=== PATIENT | female | born 1995 | race African-American/Black ===

== ENCOUNTER 2017-02-11 00:09 | Inpatient (IN) | payer BC, MEDICAID ==
[2017-02-11] VITALS (12 sets, daily range): BP systolic 113–133; BP diastolic 43–84
[~2017-02-11] VITALS: Ht 167.6 cm; Wt 90.7 kg
[~2017-02-11 00:09] MED LIST: ADULT ASPIRIN E81 MG PO; CONCEPT DHA PO; FERROUS SULF325 M1 PO; IBUPROFEN600 MG PO; MOTRIN800 MG PO; NAPROSYN500 MG PO; NAPROXEN500 MG PO; NO; NO MEDS; PRE-NATAL PO; PRILOSEC20 MG/CAP PO; PROCARDIA XL30 MG PO; PROMETRIUM200 MG VA
--- NOTE | 2017-02-11 00:10 | NUR ---
ARRIVAL TO OB UNIT, UNACCOMPANIED. ORIENTED TO ROOM AND CALL SYSTEM. INSTRUCTED IN HIBICLENS SHOWER.
[2017-02-11 01:16] LABS: URINE BILIRUBIN - DIPSTICK NEGATIVE (NEGATIVE); URINE BLOOD DIPSTICK NEGATIVE (NEGATIVE); URINE CLARITY CLEAR; URINE COLOR YELLOW; URINE GLUCOSE - DIPSTICK NEGATIVE (NEGATIVE); URINE KETONE NEGATIVE (NEGATIVE); URINE LEUK ESTERASE NEGATIVE (NEGATIVE); URINE NITRITE - DIPSTICK NEGATIVE (Negative); URINE PROTEIN - DIPSTICK NEGATIVE (NEG-TRACE); URINE SPECIFIC GRAVITY <=1.005; URINE UROBILINOGEN - DIPSTICK 0.2 E.U./dL (0.2)
[2017-02-11 01:17] LABS: BARBITURATES NEGATIVE (NEGATIVE); COCAINE NEGATIVE (NEGATIVE); METHADONE NEGATIVE (NEGATIVE); OXCYCODONE NEGATIVE (NEGATIVE); TETRAHYDROCANNABIONOL NEGATIVE (NEGATIVE); TRICYLIC ANTIDEPRESSANTS NEGATIVE (NEGATIVE)
[2017-02-11 01:21] LABS: ALBUMIN 3.3 g/dL (3.2-5.0); ALKALINE PHOSPHATASE 112 u/l (38-126); ANION GAP 16 (6-22 (CALC)); BILIRUBIN, TOTAL 0.3 mg/dL (0.0-1.4); BUN 5 mg/dL (7-17); BUN/CREATININE RATIO 11 (12-20 (CALC)); CALCIUM 9.3 mg/dL (8.4-10.2); CARBON DIOXIDE 22 mmol/l (22-30); CHLORIDE 105 mmol/l (95-108); CREATININE 0.5 mg/dL (0.5-1.0); GFR > 60 ML/MIN (>=60 (CALC)); GFR FOR AFR.AMER. > 60 ML/MIN (>=60 (CALC)); GLUCOSE 92 mg/dL (65-105); POTASSIUM 4.3 mmol/l (3.5-5.1); SGOT/AST 16 u/l (14-36); SGPT/ALT 23 u/l (9-52); SODIUM 139 mmol/l (137-146); TOTAL PROTEIN 6.6 g/dL (6.3-8.2)
[2017-02-11 01:28] LABS: HEMATOCRIT 32.8 % (37.0-47.0); HEMOGLOBIN 11.3 g/dl (12.0-16.0); IMMATURE GRANULOCYTES 0.3 % (0.0-1.0); MEAN CELL VOLUME 87.2 fL CALC (80.0-100.0); MEAN CORPUSCULAR HGB 30.1 pG CALC (26.0-32.0); MEAN CORPUSCULAR HGB CONC 34.5 g/L CALC (32.0-36.0); NEUT# 3.62 thou/uL (2.00-7.15); RED BLOOD COUNT 3.76 mill/uL (4.20-5.60); RED CELL DISTRI WIDTH 14.5 % (11.5-15.5)
--- NOTE | 2017-02-11 01:28 | NUR ---
SETTLED AND READY FOR SLEEP. SIDE RAILS UP X 2, CALL GEE WITHIN REACH.
--- NOTE | 2017-02-11 06:15 | NUR ---
UP TO BATHROOM TO VOID. EFM APPLIED ON RETURN. FHR 140 WITH MODERATE VARIABILITY, ACCELERATONS AND NO DECELERATIONS, CATEGORY 1.
--- NOTE | 2017-02-11 07:00 | NUR ---
REPORT RECEIVED FROM Nani WARD RN. PT IS SLEEPING WHEN RN AT BEDSIDE BUT REPORTED TO BE UPSET AND ANXIOUS.
--- NOTE | 2017-02-11 07:48 | NUR ---
ANESTHESIA, [employer] HERE, aLz MENA SPEAKING WITH PT AND EXPLAINING THAT GENERAL ANESTHESIA WILL BE GIVEN SECONDARY TO RECENT ASA USE AND POTENTIAL FOR COMPLICATION WITH SPINAL. PT EXPRESSING THAT SHE WOULD LIKE TO BE AWAKE. DR. MERRILL IN AND PT STATING THAT SHE IS SCARED AND WANTS SPINAL. DR. MERRILL DISCUSSED OPTION TO WAIT UNTIL LATER IN THE WEEK AND PLAN SPINAL AFTER SEVERAL DAYS OFF ASA. PT STATED THAT SHE WANTS C/S TODAY AND WANTS GENERAL ANESTHESIA. PT STATING THAT SHE IS ANXIOUS AND HAS PANIC ATTACKS, AND RN'S Al DAWN AND MYSELF OFFERING SUPPORT. PT EXPRESSING THAT IT HELPS HER TO TOUCH US, REASSURED HER THAT THIS IS FINE. EXPLAINED INFANT CARE. PTS GRANDMOTHER AT BEDSIDE THRU OUT THE CONVERSATIONS WITH ANESTHESIA AND DR. MERRILL. PT CALMER AT PRESENT. PT HAD 50 CC EMESIS, BILE APPEARING
--- NOTE | 2017-02-11 07:54 | NUR ---
[employer] ELECTRICIAN HELPER IN TO SPEAK TO PT. PT EXPRESSING UNDERSTANDING OF PROCEDURE AND STATES THAT SHE HAS NO QUESTIONS.
--- NOTE | 2017-02-11 09:40 | NUR ---
Cytotec po given in recovery room. Pt encouraged to take small sips of water.
--- NOTE | 2017-02-11 10:10 | NUR ---
Received care of pt. To room 203 via stretcher by OR Nani Curry RN. Pt transferred to bed with complaint of pain. SCD's applied. Instructed to cough and deep breathe while in bed. Encouraged to drink small sips of water. Water with no ice given. Fundus firm with massage at 1 below umbilicus. Scant lochia. Pt encouraged to notify nurse of any sensation of trickling or gushing of blood in perineum. Assessment completed as charted. Vital signs obtained per order. Plan of care reviewed. Call light within reach. Will continue to monitor.
--- NOTE | 2017-02-11 16:50 | NUR ---
PT ASSISTED OUT OF BED TO RESTROOM. PT DOING WELL, MINIMAL HELP NEEDED. EFREN CARE INSTRUCTIONS GIVEN. EFREN CARE DONE BY PT. ROBERSON REMOVED AT THIS TIME. CLEAN EFREN PADS APPLIED. PT ASSISTED TO SIT UP IN CHAIR AT BEDSIDE. CALL LIGHT WITHIN REACH. INSTRUCTED NOT TO CROSS LEGS. PT ENCOURAGED TO STAY IN CHAIR FOR 20-30 MINUTES AND THEN GET BACK IN BED. DINNER TRAY GIVEN AT THIS TIME. PT STATES FAMILY WILL BE ARRIVING LATER TODAY.
--- NOTE | 2017-02-11 18:00 | NUR ---
PT ASSISTED TO RESTROOM. VOIDED 400 ML YELLOW URINE, SMALL BLOOD CLOT NOTED. WILL CONTINUE TO MONITOR. ASSISTED TO BED AT THIS TIME. IN ARMS TO BREASTFEED. PT WITH NO COMPLAINTS OR CONCERNS.
--- NOTE | 2017-02-11 18:50 | NUR ---
PT . NO REQUESTS AT THIS TIME. REPORT GIVEN TO ONCOMING SHIFT.
--- NOTE | 2017-02-11 20:00 | NUR ---
PT AWAKE AND ALERT, RESTING IN BED, FAMILY IN RM VISITING, PT DENIES ANY CONCERNS AT THIS TIME, VSS, MEDICATED SCHEDULED, ASSESSMENT DONE- ALL WNL, PT DENIES ANY FURTHER NEEDS AT THIS TIME, ENCOURAGED TO CALL NURSE FOR ANY NEEDS OR CONCERNS- VERBALIZES UNDERSTANDING.
--- NOTE | 2017-02-12 | NUR ---
PT AWAKE AND ALERT, UP AMBULATING IN RM, C/O PAIN- MEDICATED ORDERED, VSS, PT DENIES ANY OTHER NEEDS, WILL CONT TO MONITOR, PT'S MOTHER AT BEDSIDE AND ROOMING IN.
[2017-02-12 04:00] VITALS: BP 117/48
[2017-02-12 06:54] LABS: HEMATOCRIT 22.5 % (37.0-47.0); HEMOGLOBIN 7.7 g/dl (12.0-16.0); IMMATURE GRANULOCYTES 0.3 % (0.0-1.0); MEAN CELL VOLUME 87.9 fL CALC (80.0-100.0); MEAN CORPUSCULAR HGB 30.1 pG CALC (26.0-32.0); MEAN CORPUSCULAR HGB CONC 34.2 g/L CALC (32.0-36.0); NEUT# 7.39 thou/uL (2.00-7.15); RED BLOOD COUNT 2.56 mill/uL (4.20-5.60); RED CELL DISTRI WIDTH 14.1 % (11.5-15.5)
--- NOTE | 2017-02-12 07:00 | NUR ---
Received care of pt. Sitting up in bed with infant in arms, positive bonding noted. Plan of care reviewed. pt with no questions or concerns. States she has been using incentive spirometer. previously medicated for pain. denies pain medication at this time. Dressing clean and dry. Instructed to get in shower today and let dressing soak before removing. Incision care reviewed. Will continue to monitor.
[2017-02-12 07:10] VITALS: BP 114/56
--- NOTE | 2017-02-12 07:10 | NUR ---
Pt up to restroom with no complaints. mother in room at this time assisting with infant. Will continue to monitor.
--- NOTE | 2017-02-12 07:40 | NUR ---
Pt verbalizes light to moderate lochia, no clots. No gushing of fluids. Skin WNL, no bruising, no petechiae. Mucous membranes pink. Denies fainting, dizziness, and weakness. Call light within reach. Will continue to monitor.
--- NOTE | 2017-02-12 10:50 | NUR ---
Discharge planning reviewed. Pt with no questions. Will continue to monitor.
--- NOTE | 2017-02-12 11:08 | NUR ---
Pt denies s/s of depression at this time. Instructed to seek help and notify MD if any symptoms arise after discharge. Pt verbalizes understanding.
--- NOTE | 2017-02-12 13:14 | NUR ---
Dr Reyes in to see pt. No new orders received. Will continue to monitor.
[2017-02-12 16:46] VITALS: BP 110/51
--- NOTE | 2017-02-12 18:42 | NUR ---
Pt resting in bed with no complaints. report ready for oncoming shift.
--- NOTE | 2017-02-12 19:30 | NUR ---
PT AWAKE AND ALERT, SITTING UP IN CHAIR, DENIES ANY CONCERNS AT THIS TIME, ASSESSMENT DONE- SEE FLOWSHEET, PT ENOURAGED TO CALL NURSE FOR ANY NEEDS OR CONCERNS- VERBALIZES UNDERSTANDING.
[2017-02-12 20:00] VITALS: BP 140/60
--- NOTE | 2017-02-13 00:18 | NUR ---
PT RESTING QUIETLY IN BED, DENIES ANY CONCERNS AT THIS TIME, WILL CONT TO MONITOR.
[2017-02-13 04:05] VITALS: BP 120/55
--- NOTE | 2017-02-13 06:05 | NUR ---
PT RESTING QUIETLY IN BED- AROUSES EASILY, DENIES ANY PAIN OR CONCERNS AT THIS TIME, PT REENCOURAGED TO CALL NURSE FOR ANY NEEDS OR CONCERNS.
--- NOTE | 2017-02-13 07:10 | NUR ---
REPORT RECEIVED, PT RESTS WITH EYES CLOSED.
--- NOTE | 2017-02-13 07:35 | NUR ---
PT SITS IN BED, HOLDING INFANT, SERVED BREAKFAST, PT DENIES PAIN.
[2017-02-13] MEDS ORDERED: IBUPROFEN600 MG PO (09:32)
[2017-02-13] MEDS ORDERED: IRON325 M1 PO (09:33)
[2017-02-13] MEDS ORDERED: LORTAB 7.57.5 MG PO (09:34)
[2017-02-13] MEDS ORDERED: ACETAMINOP160 MG/5 M PO (09:38)
--- NOTE | 2017-02-13 10:45 | NUR ---
REVIEWED DISCHARGE PLAN, PT ACKNOWLEDGED UNDERSTANDING.
--- NOTE | 2017-02-13 12:35 | NUR ---
PT OOB IN ROOM CARING FOR . PT STATES SHE HAS BEEN URINATING W/O PROBLEM.
--- NOTE | 2017-02-13 13:20 | NUR ---
PT MEDICATED PER REQUEST, ACHING. SITS IN CHAIR. COMFORT MEASURES FOR ACHING REVIEWED.
--- NOTE | 2017-02-13 13:45 | NUR ---
REVIEWED IRON RICH DIET, IMPORTANCE OF TALKING IRON SUPPLEMENT, PT MAY TAKE OTC STOOL SOFTENER NEEDED PER MD INSTRUCTIONS. PT ACKNOWLEDGED UNDERSTANDING.
--- NOTE | 2017-02-13 13:55 | NUR ---
Discharge instructions given and reviewed. Pt. verbalizes understanding. [facility] good [facility] accompanied by mother and daughter, escorted by Krystal Ruiz RN.
== END 2017-02-13 13:55 | disposition home or self-care (01) | DRG 765 ==
LOC: OB 00:09
PROVIDERS: ADMIT Obstetrics & Gynecology; ATTEND Obstetrics & Gynecology
PROC: 10D00Z1 Extraction of Products of Conception, Low, Open Approach (ICD-10-PCS; principal; 2017-02-11)
DX: O36.5930 Maternal care for other known or suspected poor fetal growth, third trimester, not applicable or unspecified (principal); O26.873 Cervical shortening, third trimester; O34.211 Maternal care for low transverse scar from previous cesarean delivery; N85.8 Other specified noninflammatory disorders of uterus; Z79.82 Long term (current) use of aspirin; Z3A.38 38 weeks gestation of pregnancy; Z37.0 Single live birth